=== PATIENT | male | born 2000 | race Caucasian/White ===

== ENCOUNTER 2023-05-20 09:54 | Emergency (ER) | payer BC, OTHER, SELFPAY ==
[2023-05-20] MEDS ORDERED: Ketorolac Tromethamine 30 MG/ML VIAL ONE (11:45)
[2023-05-20] MEDS ORDERED: Ondansetron ODT 4 MG TAB ONE (11:45)
[2023-05-20 12:42] LABS: SARS-CoV-2 NAA Rapid Test Not Detected (NotDetected)
== END 2023-05-20 13:00 | disposition home or self-care (01) ==
LOC: CSHERS 09:54
DX: B34.9 Viral infection, unspecified (principal); F17.210 Nicotine dependence, cigarettes, uncomplicated; Z20.822 Contact with and (suspected) exposure to COVID-19
CPT/HCPCS: 71045; 87081; 87430; 96372; J1885; Q0162